=== PATIENT | female | born 1990 | race Hispanic/Latino ===

== ENCOUNTER 2021-07-03 17:10 | Emergency (ER) | payer OTHER, MEDICAID, SELFPAY ==
[2021-07-03 17:21] VITALS: BP 165/90; PULSE 89; RESP 17; TEMP 36.4; O2SAT 97; BMI 39.1
[2021-07-03 18:20] LABS: Alanine Aminotransferase 37 IU/L (<35); Albumin 4.6 g/dL (3.5-5.0); Albumin Globulin Ratio 1.1 (1.0-2.8); Alkaline Phosphatase 89 U/L (38-126); Aspartate Aminotransferase 26 IU/L (14-36); BUN Creatinine Ratio 11.3 (6-22); Bilirubin Total 0.7 mg/dL (0.2-1.3); Blood Urea Nitrogen 8 mg/dL (7-17); Calcium 9.3 mg/dL (8.4-10.2); Carbon Dioxide 26 mmol/L (22-32); Chloride 105 mmol/L (98-107); Estimated Glomerular Filt Rate > 60.0 mL/min (>60); Globulin 4.2 g/dL (1.7-4.1); Glucose 89 mg/dL (70-100); HEMOLYSIS < 15 (0-50); Sodium 140 mmol/L (137-145); Total Protein 8.8 g/dL (6.3-8.2)
[2021-07-03 18:22] LABS: Add Manual Diff / Slide Review NO; Basophils Absolute Auto 100 /uL (0-100); Basophils Percent Auto 0.8 % (0-2); Eosinophils Absolute Auto 200 /uL (0-450); Eosinophils Percent Auto 2.9 % (2-4); Hematocrit 42.7 % (36-46); Hemoglobin 14.5 g/dL (12.0-16.0); Lymphocytes Absolute Auto 1800 /uL (1100-4500); Lymphocytes Percent Auto 20.9 % (25-40); Mean Corpuscular Hemoglobin 28.2 PG (26-34); Mean Corpuscular Volume 82.9 fL (80-100); Monocytes Absolute Auto 500 /uL (0-900); Monocytes Percent Auto 6.2 % (3-14); Neutrophils Absolute Auto 6000 /uL (1500-7000); Neutrophils Percent Auto 69.2 % (50-75); Platelet Count 289 X10^3/uL (150-400); Red Blood Cell Count 5.15 X10^6/uL (4.0-5.2); Red Cell Distribution Width 13.5 % (11.6-14.8); White Blood Cell Count 8.6 X10^3/uL (4.5-11.0)
[2021-07-03 20:24] VITALS: BP 124/88; PULSE 87; O2SAT 99
--- NOTE | 2021-07-03 20:37 | ED.FEMALEGU ---
HPI - Female Genitourinary General Chief complaint: Abdominal Pain Stated complaint: IUD NOT IN THE RIGHT SPOT Time Seen by Provider: 07/03/21 20:37 Source: patient and RN notes reviewed Mode of arrival: Ambulatory Limitations: no limitations History of Present Illness HPI Narrative: This is a 31-year-old female who comes today with a pelvic ultrasound stating that her IUD is not in the right spot. Patient states it was placed last August. She did not ever appreciate any issues with it. She has had some abdominal discomfort they thought it was her endometriosis so she had abdominal ultrasound and pelvic ultrasound showing that her IUD is potentially in the cervix and projecting into the mucosa. Patient is currently on her menses. She has had her tubes tied. She has had ex lap for endometriosis in the past. Patient has had x2. She states no other daily medications. No known drug allergies. She should her IUD was placed by a physician at [place] who has since retired. She is unsure if he was primary care or entry analyst. Patient states she is currently on antibiotics for UTI. She denies fevers, no chills, no active pelvic or abdominal pain. No nausea or vomiting. No diarrhea, constipation or current urinary symptoms. She is having vaginal bleeding consistent with her normal. . Patient does complain of headache and does ask for ibuprofen or Tylenol. Related Data Home Medications Medication Instructions Recorded Confirmed No Known Home Medications 07/03/21 07/03/21 Allergies Allergy/AdvReac Type Severity Reaction Status Date / Time No Known Drug Allergies Allergy Verified 07/03/21 17:24 Review of Systems Review of Systems ROS Unobtainable: All systems reviewed & are unremarkable except as noted in HPI and below Patient History alcohol intake frequency: other Last Alcoholic Drink: none Substance Use Type: does not use Exam Narrative Exam Narrative: GENERAL: Alert and oriented x three, female in mild distress. HEENT: Head normocephalic, atraumatic, EOMI, pupils reactive, face symmetric, moist mucous membranes NECK: Supple, full range of motion CARDIOVASCULAR: Regular rate and rhythm without murmurs, rubs or gallops. RESPIRATORY: Breath sounds equal bilaterally, no wheezes rales or rhonchi. ABDOMEN: Soft, nontender. Normoactive bowel sounds all 4 quadrants. No guarding or rebound, rigidity, no mass : No CVA tenderness. Female: externa vaginal examl normal, mildvaginal bleeding, no discharge, no cervical motion tenderness, normal speculum exam, no adnexal tenderness/mass. Patient does have IUD in place the strings are protruding and easily grasped. No adnexal tenderness. EXTREMITIES: Normal range of motion, no clubbing or edema. Neurovascularly intact NEUROLOGICAL: Cranial nerves II through XII grossly intact. Moving all extremities SKIN: Warm, dry, no petechiae, no rashes or lesions. Initial Vital Signs Initial Vital Signs: Vital Signs Temperature 97.6 F 07/03/21 17:21 Pulse Rate 89 07/03/21 17:21 Respiratory Rate 17 07/03/21 17:21 Blood Pressure 165/90 H 07/03/21 17:21 Pulse Oximetry 97 07/03/21 17:21 [place] [facility] [place]: IUD removal. Patient had pelvic exam. Strings were easily identified, they were grasped with ring forceps and with gentle traction was easily removed. Patient is already on menses so there is a small amount of blood in the canal that is dark. No active her bright red bleeding otherwise. Patient tolerated procedure well although she did have some discomfort with it. IUD was visualized in its entirety. Course Orders Ordered: Discontinued Medications Ibuprofen (Ibuprofen 400 Mg Tablet) 800 mg PO NOW ONE Stop: 07/03/21 20:47 Last Admin: 07/03/21 20:58 Dose: 800 mg Documented by: BRISEYDA Consultations Consultation #1: Dr. Garcia, hollow handle bench worker DIRECTOR OF HOUSING AND ENERGY SERVICES. She discussed case with Dr. Nix who is the edge runner on-call today as backup. They recommend removal of IUD. If there is difficulty removing IUD patient can follow-up with the office. She can have a new IUD placed in a couple of weeks Time: 20:48 Vital Signs Vital signs: Vital Signs - 8 hr 07/03/21 17:21 07/03/21 20:24 Temperature 97.6 F Pulse Rate 89 87 Respiratory Rate 17 Blood Pressure 165/90 H 124/88 Pulse Oximetry 97 99 MDM - Female Genitourinary Lab Data Result diagrams: 07/03/21 17:45 07/03/21 17:45 Labs: Lab Results 07/03/21 07/03/21 Range/Units 17:45 17:45 WBC 8.6 (4.5-11.0) X10^3/uL RBC 5.15 (4.0-5.2) X10^6/uL Hgb 14.5 (12.0-16.0) g/dL Hct 42.7 (36-46) % MCV 82.9 (80-100) fL MCH 28.2 (26-34) PG MCHC 34.0 (30-36) % RDW 13.5 (11.6-14.8) % Plt Count 289 (150-400) X10^3/uL Neut % (Auto) 69.2 (50-75) % Lymph % (Auto) 20.9 L (25-40) % Yates % (Auto) 6.2 (3-14) % Eos % (Auto) 2.9 (2-4) % Baso % (Auto) 0.8 (0-2) % Neut # (Auto) 6000 (3138-4041) /uL Lymph # (Auto) 1800 (2805-6031) /uL Yates # (Auto) 500 (0-900) /uL Eos # (Auto) 200 (0-450) /uL Baso # (Auto) 100 (0-100) /uL Sodium 140 (137-145) mmol/L Potassium 4.0 (3.4-5.1) mmol/L Chloride 105 (98-107) mmol/L Carbon Dioxide 26 (22-32) mmol/L BUN 8 (7-17) mg/dL Creatinine 0.71 (0.52-1.04) mg/dL Estimated GFR > 60.0 (>60) mL/min BUN/Creatinine Ratio 11.3 (6-22) Glucose 89 (70-100) mg/dL Calcium 9.3 (8.4-10.2) mg/dL Total Bilirubin 0.7 (0.2-1.3) mg/dL AST 26 (14-36) IU/L ALT 37 H (<35) IU/L Alkaline Phosphatase 89 (38-126) U/L Total Protein 8.8 H (6.3-8.2) g/dL Albumin 4.6 (3.5-5.0) g/dL Globulin 4.2 H (1.7-4.1) g/dL Albumin/Globulin Ratio 1.1 (1.0-2.8) Imaging Data US - MANAGER ELECTRONIC: Radiologist's Impression: Outpatient ultrasound report shows malposition IUD. Uterus is normal in size at 9.6 x 5.0 x 6.7 cm. Endometrium measures 12.6 mm in combined thickness. IUD is located within the cervix 1 of the arms of the IUD extends to the lateral wall of the left lower uterine segment. It is unclear whether remains within the myometrium or may extend to the serosal surface. Right ovary measures 2.6 x 1.3 x 2 cm and the left ovary measures by 2.4 x 1.5 x 1.7 cm. US - abdomen: Radiologist's Impression: Outpatient ultrasound report shows hepatic steatosis but no discrete hepatic lesion. Normal appearing gallbladder. No biliary ductal dilation. Borderline splenomegaly. No discrete splenic lesion. [facility] Narrative Medical decision making narrative: 31-year-old female comes with complaint of her IUD not in the right position. Patient had a pelvic ultrasound for other reasons she has had some chronic abdominal discomfort and has history of endometriosis. She has not appreciated any chronic pelvic pain or issues with her IUD was placed last year her provider has since retired. [facility] report was reviewed. Discussed with entry analyst who recommends removal. IUD was easily removed in its entirety. Discharge Plan Departure Patient Disposition: Home Clinical Impression: Malpositioned intrauterine device (IUD), Encounter for IUD removal Instructions: Intrauterine Device Removal Activity Restrictions/Additional Instructions: Follow up with SOLUTION DESIGNER for treatment of your endometriosis. Your IUD was removed today. It was removed in its entirety. You may and expect a small increase in bleeding during or. But you should not be going through more than 1 tampon or pad an hour. SOLUTION DESIGNER recommends that you can have a IUD placed several weeks from now if you wish to do so. If you have discomfort you can take Tylenol and/or ibuprofen as needed. Please return if you have new or significant abdominal pain, fevers, persistent vomiting, atypical vaginal bleeding or persistent vaginal bleeding that is more than a tampon or pad an hour or other new or concerning symptoms. Prescriptions: No Action No Known Home Medications 0RF Referrals: Nery Nix MD [Physician] - Shellie Garcia ARNP [Non-Staff] -
[2021-07-03] MEDS: IBUPROFEN 400 MG TABLET 800 MG PO (20:58)
[2021-07-03 21:30] VITALS: O2SAT 98
[2021-07-03 21:31] VITALS: BP 143/65; PULSE 90; O2SAT 98
== END 2021-07-03 21:41 | disposition home or self-care (01) ==
PROVIDERS: Emergency Medicine; Emergency Provider Emergency Medicine
DX: Z30.432 Encounter for removal of intrauterine contraceptive device (principal); T83.32XA Displacement of intrauterine contraceptive device, initial encounter; R51.9 Headache, unspecified
CPT/HCPCS: 36415; 58301; 80053; 85025; 99283

== ENCOUNTER → 2023-02-26 12:42 | Outpatient (CLI) | payer OTHER, MEDICAID, SELFPAY ==
--- NOTE | 2023-02-26 12:43 | DI.US.S_ITS ---
PROCEDURE: US PELVIC COMPLETE INDICATIONS: PAIN; HISTORY ENDOMETRIOSIS TECHNIQUE: Real-time scanning was performed of the pelvic organs, with image documentation. Additional endovaginal scanning was necessary due to incomplete visualization of the adnexal and endometrial structures by transabdominal scanning. COMPARISON: None. FINDINGS: Uterus: Uterus is anteverted and normal in size at 9.8 x 5.5 x 6.4 cm. The myometrium is homogeneous. The endometrium measures 16.1 mm combined thickness. Ovaries: The right ovary measures 1.6 x 1.2 x 2.6 cm, with a calculated ovarian volume of 2.6 cc. Left ovary is not visualized . Left adnexal cyst measures 1.9 x 1.3 x 1.2 cm Other: No pathologic free abdominal or pelvic fluid. IMPRESSION: Nonvisualized left ovary. There is however a left adnexal cyst measuring 1.9 cm Approved by: Mateus Lang M.D. on 02/26/2023 at 19:01
== END ==
PROVIDERS: Referring Provider Student in an Organized Health Care Education/Training Program; Visit Provider Student in an Organized Health Care Education/Training Program
DX: N92.6 Irregular menstruation, unspecified (principal); N94.89 Other specified conditions associated with female genital organs and menstrual cycle
CPT/HCPCS: 76830; 76856

== ENCOUNTER → 2023-08-16 09:45 | Outpatient (CLI) | payer OTHER, MEDICAID, SELFPAY ==
--- NOTE | 2023-08-16 09:46 | DI.RAD.S_ITS ---
PROCEDURE: XR DEXA AXIAL SKELETON INDICATIONS: Screening Osteoporosis COMPARISON: None. FINDINGS: Lumbar Spine: Bone mineral density 1.154 g/cm2, T score not reportable due to age. Left Hip: Bone mineral density 0.925 g/cm2, Z score -0.1. Left Femoral Neck: Bone mineral density 0.805 g/cm2, T score -0.3. Right Hip: Bone mineral density 1.004 g/cm2, Z score 0.5. Right Femoral Neck: Bone mineral density 0.840 g/cm2, Z score 0. IMPRESSION: Decreased bone mineral density for age. Dictated by: Mayo Murphy M.D. on 08/16/2023 at 10:55 Approved by: Mayo Murphy M.D. on 08/16/2023 at 10:57
== END ==
PROVIDERS: PCP Nurse Practitioner; Referring Provider Student in an Organized Health Care Education/Training Program; Visit Provider Student in an Organized Health Care Education/Training Program
DX: Z13.820 Encounter for screening for osteoporosis (principal)
CPT/HCPCS: 77080

== ENCOUNTER 2024-08-14 10:36 | Emergency (ER) | payer OTHER, SELFPAY ==
[2024-08-14 10:38] VITALS: BP 132/87; PULSE 111; RESP 18; TEMP 36.8; O2SAT 98; BMI 38.5
[2024-08-14 11:07] LABS: Strep Grp A by PCR Rapid Positive (Negative)
--- NOTE | 2024-08-14 11:26 | ED.URI ---
HPI - URI/Sore Throat <Kristie Reyes PA-C - Last Filed: 08/14/24 12:22> General Chief Complaint: Upper Respiratory Symptoms Stated Complaint: Sore throat 3 days Time Seen by Provider: 08/14/24 11:10 Source: patient Mode of arrival: Ambulatory History of Present Illness HPI Narrative: Ms. Cota is a very pleasant 34-year-old female with a past medical history of endometriosis who presents to the emergency department for sore throat x3 days. Patient denies any known sick contacts. States that she has had a persistent sore throat for the last 3 days and this morning she developed some nausea and mild headache as well. She denies fevers but she does feel somewhat warm. No known sick contacts. No history of strep throat or tonsillectomy. Reports some fullness in her right ear that is resolved. Denies difficulty swallowing or speaking, vomiting, fevers, chills, swelling, cough, shortness of breath. No medications prior to arrival. Related Data Previous Rx's Medication Instructions Recorded amoxicillin 500 mg capsule 500 mg PO BID 10 days #20 caps 08/14/24 Allergies Allergy/AdvReac Type Severity Reaction Status Date / Time No Known Drug Allergies Allergy Verified 08/14/24 10:43 Review of Systems <Kristie Reyes PA-C - Last Filed: 08/14/24 12:22> Review of Systems ROS Unobtainable: All systems reviewed & are unremarkable except as noted in HPI and below Patient History <Kristie Reyes PA-C - Last Filed: 08/14/24 12:22> Medical History Obesity, Class II, BMI 35-39.9 Fatty liver Hypothyroidism GERD (gastroesophageal reflux disease) Endometriosis (~2020) Surgical History Anesthesia History of delivery H/O exploratory laparotomy Family History Father Diabetes mellitus Hypertension Smoking Status: Never smoker alcohol intake frequency: other Exam <Kristie Reyes PA-C - Last Filed: 08/14/24 12:22> Narrative Exam Narrative: GENERAL: 34 year old patient appears stated age. Well-developed patient, in no acute distress. HEAD: Atraumatic. Normocephalic. EYES: PERRL. Extraocular motions intact. No scleral icterus. No injection or drainage. ENT: Brightly erythematous posterior oropharynx. Uvula is midline. Airway is patent. There is no tonsillar exudates or tonsillar hypertrophy. Nose without bleeding, purulent drainage. NECK: Trachea midline. Cervical ROM intact. No neck swelling. Submandibular region soft. CARDIOVASCULAR: Regular rate and rhythm. RESPIRATORY: ?Nonlabored respirations. ?Speaking in clear, full sentences. ?Clear to auscultation. Breath sounds equal bilaterally. No wheezes, rales, or rhonchi. ? NEURO: AOx3. ?Clear speech. ?Moves all 4 extremities appropriately. SKIN: No rash or erythema of visible areas Initial Vital Signs Initial Vital Signs: Vital Signs Temperature 98.2 F 08/14/24 10:38 Pulse Rate 111 H 08/14/24 10:38 Respiratory Rate 18 08/14/24 10:38 Blood Pressure 132/87 08/14/24 10:38 Pulse Oximetry 98 08/14/24 10:38 Oxygen Delivery Method Room Air 08/14/24 10:38 <Tres Watkins MD - Last Filed: 08/14/24 12:31> Initial Vital Signs Initial Vital Signs: Vital Signs Temperature 98.2 F 08/14/24 10:38 Pulse Rate 111 H 08/14/24 10:38 Respiratory Rate 18 08/14/24 10:38 Blood Pressure 132/87 08/14/24 10:38 Pulse Oximetry 98 08/14/24 10:38 Oxygen Delivery Method Room Air 08/14/24 10:38 Course <Kristie Reyes PA-C - Last Filed: 08/14/24 12:22> Orders Ordered: ED Orders 08/14/24 10:45 Strep Grp A by PCR Rapid Stat Discontinued Medications Acetaminophen (Acetaminophen 325 Mg Tablet) 975 mg PO NOW ONE Stop: 08/14/24 11:22 Last Admin: 08/14/24 11:29 Dose: 975 mg Documented By: RB Ibuprofen (Ibuprofen 400 Mg Tablet) 400 mg PO NOW ONE Stop: 08/14/24 11:22 Last Admin: 08/14/24 11:29 Dose: 400 mg Documented By: RB Ondansetron HCl (Ondansetron 4 Mg Odt) 4 mg SL NOW ONE Stop: 08/14/24 11:22 Last Admin: 08/14/24 11:30 Dose: 4 mg Documented By: RB Vital Signs Vital signs: Vital Signs - 8 hr 08/14/24 10:38 08/14/24 11:40 Temperature 98.2 F Pulse Rate 111 H 94 H Respiratory Rate 18 18 Blood Pressure 132/87 130/72 Pulse Oximetry 98 99 Oxygen Delivery Method Room Air Room Air <Tres Watkins MD - Last Filed: 08/14/24 12:31> Orders Ordered: ED Orders 08/14/24 10:45 Strep Grp A by PCR Rapid Stat Discontinued Medications Acetaminophen (Acetaminophen 325 Mg Tablet) 975 mg PO NOW ONE Stop: 08/14/24 11:22 Last Admin: 08/14/24 11:29 Dose: 975 mg Documented By: RB Ibuprofen (Ibuprofen 400 Mg Tablet) 400 mg PO NOW ONE Stop: 08/14/24 11:22 Last Admin: 08/14/24 11:29 Dose: 400 mg Documented By: RB Ondansetron HCl (Ondansetron 4 Mg Odt) 4 mg SL NOW ONE Stop: 08/14/24 11:22 Last Admin: 08/14/24 11:30 Dose: 4 mg Documented By: RB Vital Signs Vital signs: Vital Signs - 8 hr 08/14/24 10:38 08/14/24 11:40 Temperature 98.2 F Pulse Rate 111 H 94 H Respiratory Rate 18 18 Blood Pressure 132/87 130/72 Pulse Oximetry 98 99 Oxygen Delivery Method Room Air Room Air MDM - URI/Sore Throat <Kristie Reyes PA-C - Last Filed: 08/14/24 12:22> Medical Records Attestation: I reviewed the patient's medical records. Medical records narrative: IUD removal 07/03/2021. OBGYN visit this morning. Lab Data Labs: Lab Results 08/14/24 Range/Units 10:45 Group A Strep (PCR) Positive H (Negative) MDM Narrative Medical decision making narrative: 34-year-old female with a past medical history of endometriosis who presents to the emergency department for sore throat x3 days. Differential diagnosis includes but isn't limited to viral pharyngitis, strep pharyngitis, mono, peritonsillar abscess, etc. On exam the patient is in no acute distress, nontoxic appearing, vital signs appropriate except for mildly elevated heart rate. Patient's physical exam reveals a brightly erythematous posterior oropharynx however the areas patent the uvula is midline is there is no sign of abscess. She has no difficulty speaking swallowing or breathing. Rapid strep test was ordered in triage and came back positive. Patient has no allergies, we will treat with amoxicillin 500 mg p.o. b.i.d. times 10 days, she is requesting ibuprofen and Tylenol at this time for pain, we will also give a dose of Zofran as she is reporting some mild nausea. No difficulty tolerating p.o.. Antibiotics were sent to pharmacy of choice. Discussed ED return precautions, supportive care, all questions answered and she is stable for discharge home, VS improved. <Tres Watkins MD - Last Filed: 08/14/24 12:31> Lab Data Labs: Lab Results 08/14/24 Range/Units 10:45 Group A Strep (PCR) Positive H (Negative) Discharge Plan Departure Patient Disposition: Home Clinical Impression: Acute streptococcal pharyngitis Instructions: DI for Strep Throat Activity Restrictions/Additional Instructions: Dear Cipriano, Thank you for coming to the emergency department. I am sorry that you have been suffering with a sore throat for the last 3 days. Today we obtained a rapid strep throat test which came back positive. Please complete the full 10 day course of antibiotics for this infection. After 24-48 hours of being on antibiotics, please throw away your toothbrush and start using a clean new toothbrush. Please use ibuprofen and Tylenol to help with the pain and drink warm tea with honey to help through with the back of the throat. Please take Ibuprofen (Motrin/Advil) or Acetaminophen (Tylenol) for pain. These are available over the counter. You may take Ibuprofen 600 mg every 8 hours with food for pain. You may also take Acetaminophen 650 mg every 4-6 hours for pain. Do not exceed 3000 mg of Tylenol a day as this can cause liver damage. Do not drink alcohol with either of these medications. If you develop difficulty swallowing, breathing, worsening or not improving symptoms please return to the emergency department. Please follow up with your primary care doctor within the next 2-3 days for ER follow-up. (If you do not have a PCP you can call [phone]. ?to schedule an appointment with an [facility] Primary Care Provider) IF YOU DEVELOP ANY NEW OR WORSENING SYMPTOMS, RETURN TO THE ER! Please read the attached instructions, they highlight more specific treatments and interventions for you at home. Thank you for letting me participate in your care, Kristie Reyes PA-C Prescriptions: New amoxicillin 500 mg capsule 500 mg PO BID 10 Days Qty: 20 0RF Referrals: Emily Fu ARNP [Primary Care Provider] - Stand Alone Forms: Patient Portal/API/Survey ED Sign-out <Tres Watkins MD - Last Filed: 08/14/24 12:31> Cosign ED Attending Cosignature Attestation: I was immediately available in the department for consultation. ?This documentation has been reviewed and I agree with assessment and plan. Supervised by Tres Watkins MD
[2024-08-14] MEDS: ACETAMINOPHEN 325 MG TABLET 975 MG PO (11:29)
[2024-08-14] MEDS: IBUPROFEN 400 MG TABLET PO (11:29)
[2024-08-14] MEDS: ONDANSETRON 4 MG ODT SL (11:30)
[2024-08-14 11:40] VITALS: BP 130/72; PULSE 94; RESP 18; O2SAT 99
== END 2024-08-14 11:41 | disposition home or self-care (01) ==
PROVIDERS: Emergency Medicine; Emergency Provider Physician Assistant; PCP Nurse Practitioner
DX: J02.0 Streptococcal pharyngitis (principal); R51.9 Headache, unspecified
CPT/HCPCS: 87651; 99283

== ENCOUNTER 2024-10-08 06:12 | Day surgery (SDC) | payer OTHER, SELFPAY ==
[2024-09-30 12:13] VITALS: BMI 38.3
[2024-10-08] VITALS (8 sets, daily range): BP systolic 105–148; BP diastolic 62–87; PULSE 10–94; RESP 13–95; TEMP 36.1–36.4; O2SAT 95–99; BMI 38.7
--- NOTE | 2024-10-08 | PATH_ITS ---
[facility] Accession Number: [id number] No. of containers..02 Tissue . 01 Material submitted: . PART A: peritoneum - PERITONEUM PART B: ovary - LEFT OVARIAN CYST . 01 Diagnosis: A. PERITONEUM: Fibroconnective and fibromembranous tissue with benign simple inclusion cyst. No evidence of endometriosis. . B. LEFT OVARIAN CYST: Compatible with hemorrhagic and cystic corpus luteum. Diagnostic features of endometriosis are not identified. See comment. [facility] 10/15/2024 1131 Local . 01 Comment: B. Clinical impression of a 2 cm mucinous cyst is noted (from the chart notes). Features of a mucinous lesion are not identified. As part of routine quality analyst, this case was also reviewed by Dr. Fatou Mendez (Julie), who agrees with the interpretation. . 01 Electronically signed: . Shellie Gardiner MD, Pathologist NPI- [id number] . 01 Gross description: . A. Received in formalin with two identifiers and peritoneum biopsy, are three portillo soft tissue fragments ranging from 0.3 x 0.3 x 0.2 cm to 0.4 x 0.3 x 0.2 cm. The presumed margins are differentially inked, and the fragments are submitted intact in A1. B. Received in formalin with two identifiers and left ovarian cyst, are two irregular portillo to brown soft tissue fragments measuring 1.4 x 0.9 x 0.7 cm and 1.7 x 1.0 x 0.6 cm. The fragments are differentially inked and sectioned to reveal a portillo to brown, membranous cut surface with no excrescences or cyst contents grossly identified. The specimen is submitted entirely in B1-B2. ([id number]) /MRV 10/13/2024 1830 Local . 01 Pathologist provided ICD-10: N83.12 . 01 CPT . 326156, [id number] Specimen Comment: A courtesy copy of this report has been sent to [facility] Pathology Performed at: [address] [id number] MD Yuri Larkin MD Phone: [phone]
[2024-10-08] MEDS: LACTATED RINGERS 1,000 ML 42 ML IV ×2 (06:59→09:00)
[2024-10-08] MEDS: ACETAMINOPHEN 325 MG TABLET 975 MG PO (07:02)
[2024-10-08] MEDS: SCOPOLAMINE 1 PATCH TOP (07:15)
--- NOTE | 2024-10-08 07:45 | P.HPOB_ITS ---
History of Present Illness History of Present Illness Narrative: Leila Cota is a 34 year old female admitted for diagnostic laparoscopy with excision of endometriosis. She has no new concerns or complaints today. [facility] Medical History (Updated 09/30/24 @ 12:40 by Britt Mcdaniel RN) Group A streptococcal infection (08/14/24) Obesity, Class II, BMI 35-39.9 Fatty liver Hypothyroidism GERD (gastroesophageal reflux disease) Endometriosis (~2020) Surgical History Anesthesia History of delivery H/O exploratory laparotomy Family History Father Diabetes mellitus Hypertension Social History household members: significant other Smoking Status: Never smoker alcohol intake: current Meds Home Medications and Allergies Home Medications ?Medication ?Instructions ?Recorded ?Confirmed ?Type No Known Home Medications 10/07/2409/20 History Allergies Allergy/AdvReac Type Severity Reaction Status Date / Time No Known Drug Allergies Allergy Verified 10/08/24 06:39 Review of Systems Review of Systems ROS: Yes All systems reviewed with the patient and are negative except as otherwise documented Exam Vital Signs (past 8 hours): - 10/08/24 06:40 Temperature 97 F L Pulse Rate 89 Respiratory Rate 17 Blood Pressure 125/85 Pulse Oximetry 99 Oxygen Delivery Method Room Air Oxygen Delivery Method Room Air Const General: healthy appearing, comfortable and No acute distress Resp Effort & Inspection: normal respiratory effort and able to speak in complete sentences GI Palpation: soft and No tender Skin General: no rashes or lesions noted Neuro Cognition: normal cognition Speech: speech normal Psych Mood: congruent mood Affect: normal affect Assessment & Plan Assessment and plan (1) Endometriosis: Status: Acute (2) Pelvic pain: Status: Acute Plan 34yo F with history of endometriosis, with continued pelvic pain, counseled and consented for diagnostic laparoscopy with possible excision of endometriosis. -plan for same day surgery Surgery consent We discussed the risks/benefits/alternatives to the proposed procedure, to include but not limited to: -risk of bleeding, requiring medications, blood products, or other procedures as indicated -risk of infection, requiring prolonged hospital stay or other procedures -risk of injury to other structures, including bowel, bladder, blood vessels, nerves, etc. which may also require additional procedures -risk of adverse reaction to anesthesia or medications -risk of venous thromboembolism and associated sequelae -risk of rare complications such as cardiac arrest, or extremely rarely, Patient is aware of the risks, and desires to proceed with planned surgical procedure. Time-Based Coding :: [30min] spent with patient and on the chart (including review of chart, obtaining history, exam, reviewing outside data, placing orders, documenting exam and treatment plan, and counseling patient) on [10/08/24].
--- NOTE | 2024-10-08 07:45 | PM.PREOP ---
Pre-operative Note Interval Note History & Physical reviewed/Exam performed by Physician: Yes Changes to H&P: No
--- NOTE | 2024-10-08 08:09 | SUR.OPER ---
Lithotomy on padded OR bed. [place] Pad Positioner under torso. Head on pillow, arms padded and tucked at sides. Strap over chest. Legs secured in padded yellow fins stirrups.
[2024-10-08] MEDS: BUPIVACAINE 0.5% W/ EPI (PF) 30 ML VIAL INJ (08:25)
--- NOTE | 2024-10-08 09:46 | P.OP_ITS ---
Operative Date/Time/Diagnoses Date of procedure: 10/08/24 Time of procedure: 08:00 Pre-op diagnosis: 1. Pelvic pain 2. History of endometriosis Post-op diagnosis: same Procedure & Clinicians Procedure: Diagnostic laparoscopy Robotic-assisted laparoscopic excision of endometriosis Left ovarian cystectomy Same procedure(s) as scheduled: Yes Indications: 34yo F with history of endometriosis, with continued pelvic pain, thus she was counseled and consented for the above procedures. Surgeon: Sirena Gonzalez Click Yes if Unassisted: Yes Anesthesia Type: General Operative Notes Findings: Normal appearing uterus. Bilateral fallopian tubes surgically absent. Left ovary with 2cm mucinous cyst. Right ovary with 1cm simple cyst. Several endometriosis implants on the anterior portion of the uterus, otherwise no endometriosis visualized on the remaining peritoneum, bilateral ovarian fossae, or bilateral uterosacral ligaments. Specimen(s): other (1. peritoneal biopsies; 2. left ovarian cyst) Applied: catheter (removed at the end of the case) Estimated Blood Loss (mL): 5 Blood products transfused: none Procedure in detail: The risks, benefits, indications and alternatives of the procedure were reviewed with the patient and informed consent was obtained. The pt was taken to the operating room where general anesthesia was obtained without difficulty. The pt was then placed in the low lithotomy position using gel-padded Jaspal Stirrups. S CDs were placed bilaterally for VTE prophylaxis. Pt was then prepped and draped in the usual sterile fashion. A Shetty catheter was placed without difficulty, and a sponge stick was placed in the vagina as a means to manipulate the uterus. Attention was then turned to the patient?s abdomen where an 8mm skin incision was made in the inferior aspect of the umbilicus after injection of 0.5% marcaine. An 8mm trocar and sleeve were then carefully introduced into the peritoneal cavity under direct visualization at a 90-degree angle while tenting up the abdominal wall. Intra-peritoneal placement was confirmed under direct visualization with the laparoscope with entry pressure <5mmHg. A pneumoperitoneum was obtained with several liters of CO2 gas, maximum pressure of 15mmHg. Upon entry into the peritoneal cavity, structures immediately below the incision were inspected and found to be free of injury. Two additional 8mm trocars were placed, one on the right and one on the left lateral aspect of the abdominal wall, under direct laparoscopic visualization after injection of 0.5% marcaine at each site. A survey of the pt?s abdomen and pelvis was notable for the above findings. At this point, the [email or web address] surgical robot was docked and instruments inserted into the abdomen under direct visualization. The endometriotic implants on the anterior side of the uterus were excised with monopolar scissors, and specimens sent to pathology. Continued survey through the pelvis and abdomen revealed no other endometriotic implants. The left ovary was noted to have a 2cm cyst, which was excised and drained with monopolar scissors. The specimen was sent to pathology for review. The right ovary had a simple cyst which was drained. The pelvis was then irrigated and suctioned, and all pedicles were noted to be hemostatic. The gas was then turned off and all CO2 was removed from the pt?s abdomen. The [employer] robot was undocked, and the trocars were removed. The skin incision sites were reapproximated using 4-0 monocryl and dermabond. The sponge stick was removed from the vagina, and the shetty catheter was removed from the bladder. All instruments were confirmed to be removed from the vagina. At the completion of the case, the sponge and needle counts were correct x 2. The patient tolerated the procedure well and was taken to the PACU in stable condition. Complications: none Post-operative Condition: stable Disposition: same day surgery
[2024-10-08] MEDS: hydrOXYzine 50 MG/ML INJ 25 MG IM (09:59)
[2024-10-08] MEDS: ONDANSETRON 4 MG/2 ML INJ IV (09:59)
[2024-10-08] MEDS: OXYCODONE IR 5 MG TABLET PO (11:00)
[2024-10-08] MEDS: METOCLOPRAMIDE 10 MG/2 ML INJ 5 MG IV (11:14)
== END 2024-10-08 12:03 | disposition home or self-care (01) ==
PROVIDERS: PCP Nurse Practitioner; Referring Provider Student in an Organized Health Care Education/Training Program; Visit Provider Student in an Organized Health Care Education/Training Program
PROC: 0UB94ZZ Excision of Uterus, Percutaneous Endoscopic Approach (ICD-10-PCS; CPT 58662; principal; 2024-10-08 07:45)
DX: R10.2 Pelvic and perineal pain (principal); N80.00 Endometriosis of the uterus, unspecified; N83.202 Unspecified ovarian cyst, left side; K66.8 Other specified disorders of peritoneum
CPT/HCPCS: 58662; 49322; 20985; 81025; J0330; J1100; J2250; J2405; J2704; J2765; J3010; J3410; J3490